=== PATIENT | male | born 1960 | race Caucasian/White ===

== ENCOUNTER → 2018-02-01 | Outpatient (CLI) | payer BC ==
[~2018-02-01] MED LIST: AMLO2.5T3 PO; CIPR500T86 PO; DECADRON ONE; DIPRIVAN IV ONE; EPHEDRINE SULFATE ONE; LEVAQUIN 100 ML IV ONE; LEVO5TAB29 PO; LOSA100T7 PO; PRAV10TA2 PO; PRAV20TA2 PO; SUBLIMAZE ONE; TAMS0.4C2 PO; TORADOL ONE; TRAM50TA PO; VERSED ONE; ZOFRAN ONE
== END | disposition home or self-care (01) ==
LOC: LAB 19:09
PROVIDERS: ATTEND Nurse Practitioner Family
DX: R10.0 Acute abdomen (principal)
CPT/HCPCS: 87086; J1100; J1885; J1956; J2250; J2405; J3010; J3490

== ENCOUNTER → 2018-02-09 | Day surgery (SDC) | payer BC ==
[2018-02-09] VITALS (12 sets, daily range): BP systolic 104–152; BP diastolic 8–85
[~2018-02-09] VITALS: Ht 175.3 cm; Wt 84.4 kg
[~2018-02-09] MED LIST changes: -EPHEDRINE SULFATE ONE; +FLOMAX PO ONE; +LACTATED RINGERS 1,000 ML IV SCH; +LACTATED RINGERS IV SCH; +LIDOCAINE 2% VIAL ONE; +NORCO 7.5MG PO PRN; +NS 3000ML IRR IR ONE; +PHENERGAN IV PRN; +SODIUM CHLORIDE IR ONE; +SUBLIMAZE IV PRN; +ZOFRAN IV PRN
--- NOTE | 2018-02-09 10:12 | OPH ---
DATE OF SURGERY: 02/09/2018 PREOPERATIVE DIAGNOSES: Calculus, right ureter with an indwelling stent, post extracorporeal shockwave lithotripsy. FINAL DIAGNOSIS: Residual stone, right upper ureter. PROCEDURES: Cystoscopy, removal of right ureteral stent, right ureteroscopy with basket stone extraction. DESCRIPTION OF PROCEDURE: The patient was brought to the cystoscopy room, was put in supine position on the cystoscopy table. After the patient was given a satisfactory and adequate LMA general anesthesia, the patient was placed in the lithotomy position. The genitalia was then prepped and draped aseptically in the usual manner. First, a 23-Kazakh cystoscope was inserted per urethra up to the bladder. With the use of the right angle lens, the bladder was visualized. There was no tumor, no calculi, no ulceration seen. The right ureteral stent was then noticed in the right orifice. The left orifice was normal. The right ureteral stent was then removed and replaced with a Glidewire and after that the cystoscope was removed and a 7-Kazakh semirigid ureteroscope was inserted from the urethra to the bladder to the right ureteral orifice, all the way to the upper ureter and there was a residual stone noted in the right upper ureter. Basket stone extraction was then performed. After removal of the stone, the rest of the ureter was visualized and there was no more stone or obstruction noted. The Glidewire was removed including the ureteroscope and the cystoscope was reinserted into the bladder and the bladder was emptied with fluid. Procedure was terminated. Instrument was removed. The patient was then awakened, was transferred to the recovery room in stable condition. Ed Light MD DR: CHRISTINA/michelle JOB# [id number]
--- NOTE | 2018-02-09 11:40 | DIREP ---
PROCEDURE:XRAY FLUOROSCOPY COMPARISON:[facility], , XRAY UROGRAPHY RETROGRADE, 02/02/2018, 07:55 AM. [facility], CR, XRAY ABDOMEN SINGLE VW, 02/04/2018, 06:54 AM. INDICATIONS:RIGHT STENT REMOVAL, 27.70 mGy, 10 images, 98.9 SECONDS FLUORO TECHNIQUE:Fluoroscopic assistance during right ureteral stent removal. FINDINGS:Fluoroscopic images demonstrate right ureteral stent removal. No visible right ureteral stone. CONCLUSION:Fluoroscopic assistance right ureteral stent removal. Dictated by: Jp Bernard M.D. on 02/09/2018 at 11:38 AM
== END | disposition home or self-care (01) | DRG 694 ==
LOC: SDC 00:05
PROVIDERS: ATTEND Urology
DX: N20.1 Calculus of ureter (principal); I10 Essential (primary) hypertension; E78.00 Pure hypercholesterolemia, unspecified; E66.3 Overweight; Z68.27 Body mass index [BMI] 27.0-27.9, adult; Z79.899 Other long term (current) drug therapy; Z98.890 Other specified postprocedural states; Z79.2 Long term (current) use of antibiotics; Z87.891 Personal history of nicotine dependence; Z82.5 Family history of asthma and other chronic lower respiratory diseases
CPT/HCPCS: 52352; A4217 ×2; J1100; J1885; J2001; J2250; J2405; J3010; J3490; J7120; 76000; C1758; C1769; C1894

== ENCOUNTER 2018-02-18 02:50 | Day surgery (SDC) | payer BC ==
[2018-02-18] VITALS (7 sets, daily range): BP systolic 111–131; BP diastolic 60–70
[~2018-02-18] VITALS: Ht 175.3 cm; Wt 84.4 kg
[~2018-02-18 02:50] MED LIST changes: -DECADRON ONE; -DIPRIVAN IV ONE; -FLOMAX PO ONE; -LACTATED RINGERS 1,000 ML IV SCH; -LACTATED RINGERS IV SCH; -LEVAQUIN 100 ML IV ONE; -LIDOCAINE 2% VIAL ONE; -NORCO 7.5MG PO PRN; -NS 3000ML IRR IR ONE; -PHENERGAN IV PRN; -SODIUM CHLORIDE IR ONE; -SUBLIMAZE IV PRN; -SUBLIMAZE ONE; -TORADOL ONE; -VERSED ONE; -ZOFRAN IV PRN; -ZOFRAN ONE
[2018-02-18] MEDS ORDERED: LACTATED RINGERS 1,000 ML ONE (05:06)
[2018-02-18] MEDS ORDERED: LASIX ONE (05:28)
[2018-02-18] MEDS ORDERED: LACTATED RINGERS 1,000 ML IV SCH ×2 (06:00→09:00)
[2018-02-18] MEDS ORDERED: ZOFRAN ONE (06:15)
[2018-02-18] MEDS ORDERED: DECADRON ONE (06:15)
[2018-02-18] MEDS ORDERED: DIPRIVAN IV ONE (06:16)
[2018-02-18] MEDS ORDERED: SUBLIMAZE ONE (06:16)
[2018-02-18] MEDS ORDERED: ZOFRAN IV PRN (07:00)
[2018-02-18] MEDS ORDERED: SUBLIMAZE IV PRN (07:00)
[2018-02-18] MEDS ORDERED: DILAUDID IV PRN (07:00)
[2018-02-18] MEDS ORDERED: LASIX IV STA (08:21)
--- NOTE | 2018-02-18 08:30 | OPH ---
DATE OF SURGERY: 02/18/2018 PREOPERATIVE DIAGNOSIS: Left renal calculi. FINAL DIAGNOSIS: Left renal calculi. PROCEDURE: Left ESWL. DESCRIPTION OF PROCEDURE: The patient was brought to the lithotripsy room, was put in supine position on the lithotripsy table. A left preop renal ultrasound was initially performed which revealed 3 stones in the left kidney, 1 in the middle pole measuring 6 mm in diameter and 2 in the upper pole measuring 5.3 and 4.1 mm in diameter respectively. There is no evidence of hydronephrosis. After the patient was given an LMA general anesthesia and after localization of the stone with the use of an ultrasound and fluoroscopy, a left ESWL was then performed using a Dornier Compact Delta II Lithotripter. A total of 1500 shockwaves were delivered to the stones in different locations in the left kidney. After fragmentation of the stones as noted in the ultrasound, procedure was terminated. The patient was then awakened, was transferred to the recovery room in stable condition. Ed Light MD DR: CHRISTINA/michelle JOB# [id number]
[2018-02-18] MEDS ORDERED: TRAM50TA PO (08:50)
[2018-02-18] MEDS ORDERED: LASIX IV SCH (09:00)
[2018-02-18] MEDS ORDERED: EPHEDRINE SULFATE ONE (10:41)
== END 2018-02-18 09:21 | disposition home or self-care (01) ==
LOC: SDC 02:50
PROVIDERS: ATTEND Urology
DX: N20.0 Calculus of kidney (principal); I10 Essential (primary) hypertension; E78.00 Pure hypercholesterolemia, unspecified; E66.3 Overweight; Z68.27 Body mass index [BMI] 27.0-27.9, adult; Z79.899 Other long term (current) drug therapy; Z79.2 Long term (current) use of antibiotics; Z98.890 Other specified postprocedural states; Z87.891 Personal history of nicotine dependence; Z82.5 Family history of asthma and other chronic lower respiratory diseases; Z82.49 Family history of ischemic heart disease and other diseases of the circulatory system
CPT/HCPCS: 50590; J1100; J2405; J3010; J3490 ×2; J7120; J1940